=== PATIENT | female | born 1955 | race Caucasian/White ===

== ENCOUNTER 2021-05-20 17:54 | Emergency (ER) | payer MEDICARE, OTHER ==
[~2021-05-20] VITALS: Wt 70.3 kg
[2021-05-20 18:25] LABS: BASO # 0.1 10*3/uL (0.0-0.1); EOS % 0.5 % (1.0-4.0); HEMATOCRIT 41.4 % (37.0-47.0); LYMPH # 1.2 10*3/uL (1.3-4.4); LYMPH % 20.1 % (27.0-41.0); MEAN CORPUSCULAR HGB 31.7 pg (27.0-31.0); MEAN CORPUSCULAR HGB CONC 33.3 g/dl (33.0-37.0); MEAN PLATELET VOLUME 11.2 fl (9.6-12.3); MONO # 0.4 10*3/uL (0.1-1.0); MONO % 7.2 % (3.0-9.0); NEUT # 4.1 10*3/uL (2.3-7.9); PLATELET COUNT AUTOMATED 152 10*3/uL (130-400); RED BLOOD COUNT 4.36 10*6/uL (4.10-5.10); RED CELL DISTRI WIDTH 12.6 % (0-14.5); WHITE BLOOD COUNT 5.8 10*3/uL (4.8-10.8)
[2021-05-20] MEDS ORDERED: BUSPAR5 MG PO (18:38)
[2021-05-20] MEDS ORDERED: AMLODIPINE BESYL5 MG PO (18:38)
[2021-05-20 18:39] LABS: ALKALINE PHOSPHATASE 68 U/L (45-117); BUN 9 mg/dl (7-24); CHLORIDE 108 mmol/L (98-107); CREATININE 0.62 mg/dL (0.55-1.02); POTASSIUM 3.7 mmol/L (3.5-5.1); SGOT/AST 10 IU/L (3-35); SGPT/ALT 7 U/L (12-78); SODIUM 142 mmol/L (136-145); TOTAL PROTEIN 6.4 gm/dL (6.4-8.2)
[2021-05-20] MEDS ORDERED: VENLAFAXINE HYD75 MG PO (18:39)
[2021-05-20 18:40] LABS: ACETAMINOPHEN (TYLENOL) < 5.0 ug/ml (10-30); ETHYL ALCOHOL < 3.0 mg/dl (<3)
[2021-05-20] MEDS ORDERED: CARBIDOPA-LEVO1 EAC6 PO (18:40)
[2021-05-20] MEDS ORDERED: Sinemet Cr 25-11 TAB PO (18:41)
[2021-05-20] MEDS ORDERED: SENNA8.6 MG PO (18:42)
[2021-05-20] MEDS ORDERED: METOPROLOL SUCC25 M2 PO (18:42)
[2021-05-20] MEDS ORDERED: VITAMIN D3125 MC1 PO (18:43)
[2021-05-20 19:38] LABS: BILIRUBIN Negative (Negative); BLOOD Negative (Negative); CLARITY Clear (Clear); COLOR Yellow (Yellow); GLUCOSE Negative (Negative); KETONE Trace (Negative); LEUKO ESTERASE 3+ (Negative); NITRITE Negative (Negative)
[2021-05-20 19:46] LABS: URINE AMPHETAMINES < 1000 (1000ng/ml); URINE BARBITURATES < 200 (200ng/ml); URINE BENZODIAZEPINES < 200 (200ng/ml); URINE CANNABINOIDS (THC) < 50 (50ng/ml); URINE COCAINE < 300 (300ng/ml); URINE METHADONE < 300 (300ng/ml); URINE OPIATES < 300 (300ng/ml)
[2021-05-20 19:47] LABS: URINE PHENCYCLIDINE < 25 (25ng/ml)
[2021-05-20 19:50] LABS: BACTERIA 1+; WBC 21-30 wbc/hpf (0-5)
== END 2021-05-21 03:03 ==
LOC: ED 17:54
PROVIDERS: Physician Assistant
DX: F43.21 Adjustment disorder with depressed mood (principal); Z20.822 Contact with and (suspected) exposure to COVID-19; Z79.899 Other long term (current) drug therapy